=== PATIENT | female | born 1945 | race African-American/Black ===

== ENCOUNTER 2022-02-24 16:51 | Emergency (ER) | payer SELFPAY ==
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
--- NOTE | 2022-02-24 17:51 | NUR ---
CALLED PRINT PRESS OPERATOR #[phone] UNIT WILL BE DISPATCHED TO ER
--- NOTE | 2022-02-24 18:00 | NUR ---
Patient left without being seen by ER Physician.
== END 2022-02-24 18:10 | disposition home or self-care (01) ==
LOC: ER 16:54
DX: Z53.21 Procedure and treatment not carried out due to patient leaving prior to being seen by health care provider (principal)

== ENCOUNTER 2022-02-25 18:36 | Inpatient (IN) | payer MEDICARE, OTHER ==
[~2022-02-25] VITALS: Ht 170.2 cm; Wt 68.0 kg
--- NOTE | 2022-02-25 19:34 | NUR ---
PATIENT BIBRA 70 FOR MEDICAL CLEARANCE AND PLACEMENT. PATIENT IS A/O X 2, RR EVEN AND UNLABORED NO SOB NOTED. PATIENT VSS ARE STABLE. PATIENT TAKEN TO ER BED 14.SITTER IS AT BEDSIDE, WILL CONTINUE TO MONITOR.
--- NOTE | 2022-02-25 19:45 | NUR ---
COVID SWAB COLLECTED
--- NOTE | 2022-02-25 20:22 | NUR ---
HABITAT BIOLOGIST AT BEDSIDE
[2022-02-25 20:40] LABS: BASOPHILS % (AUTO) 0.4 % (0.0-2.0); EOSINOPHILS % (AUTO) 0.1 % (0.0-6.0); HEMATOCRIT 45 % (33-45); HEMOGLOBIN 14.8 g/dL (11.5-14.8); LYMPHOCYTES # (AUTO) 1.1 K/uL (0.8-4.8); LYMPHOCYTES % (AUTO) 12.1 % (20.0-44.0); MEAN CORPUSCULAR HGB CONC 33 g/dl (31.0-36.0); MEAN CORPUSCULAR VOLUME 91 fL (82-100); MONOCYTES # (AUTO) 0.4 K/uL (0.1-1.30); MONOCYTES % (AUTO) 4.8 % (2.0-12.0); NEUTROPHILS # (AUTO) 7.6 K/uL (1.8-8.9); NEUTROPHILS % (AUTO) 82.6 % (43.0-81.0); PLATELET COUNT (AUTO) 216 K/uL (150-450); WHITE BLOOD COUNT (AUTO) 9.2 K/uL (4.3-11.0)
[2022-02-25 20:52] LABS: BILIRUBIN,URINE NEGATIVE (NEGATIVE); COLOR,URINE YELLOW (YELLOW); LEUKOCYTE ESTERASE ,URINE NEGATIVE (NEGATIVE); NITRITE, URINE NEGATIVE (NEGATIVE); PROTEIN,URINE NEGATIVE (NEGATIVE); UGLUCOSE NEGATIVE (NEGATIVE); UROBILINOGEN,URINE 0.2 EU/dL (0.2)
[2022-02-25 21:28] LABS: ALBUMIN 3.9 g/dL (3.4-5.0); BILIRUBIN,TOTAL 0.8 mg/dL (0.2-1.0); CREATININE 1.2 mg/dL (0.6-1.3); POTASSIUM 3.6 mmol/L (3.5-5.1); TOTAL PROTEIN, SERUM 7.3 g/dL (6.4-8.2)
--- NOTE | 2022-02-26 00:02 | NUR ---
MATEO AT BEDSIDE FOR EVAL
[2022-02-26 00:03] LABS: ACETAMINOPHEN 0 ug/ml (10-30); ALCOHOL, BLOOD < 3 mg/dL (0-0)
--- NOTE | 2022-02-26 01:07 | NUR ---
REPORT GIVEN TO ISABEL FONTENOT
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
--- NOTE | 2022-02-26 01:32 | NUR ---
PATIENT TRANSFERRED TO GPS VSS.
[2022-02-26] MEDS ORDERED: NITR0.4T SL (01:45)
[2022-02-26] MEDS ORDERED: LORAZEPAM 0.5 MG TABLET PO PRN (02:00)
[2022-02-26] MEDS ORDERED: TEMAZEPAM 7.5 MG CAPSULE PO PRN (02:00)
[2022-02-26] MEDS ORDERED: BLOOD SUGAR DIAGNOSTIC 1 EACH STRIP IN ONE (02:00)
[2022-02-26 08:00] VITALS: BP 125/68
--- NOTE | 2022-02-26 09:15 | NUR ---
RN Notes: Received pt. asleep in bed, breathing is even and unlabored. Ate 100% for breakfast, is responding appropriately to staffs and pleasant upon approached. Pt. reoriented on the unit, encouraged to verbalize feelings and needs attended. Will continue to monitor for safety.
[2022-02-26] MEDS ORDERED: LOSA100T31 PO (13:06)
[2022-02-26] MEDS ORDERED: HYDR25TA4 PO (13:10)
[2022-02-26] MEDS ORDERED: ASPI-1169 PO (13:10)
[2022-02-26] MEDS ORDERED: METO50TA16 PO (13:10)
[2022-02-26] MEDS ORDERED: LOSA25TA27 PO ×2 (13:32→13:44)
--- NOTE | 2022-02-26 16:50 | NUR ---
Satya Sharma NP made aware to reconcile meds for the pt.
[2022-02-26] MEDS: DIVALPROEX SODIUM 125 MG CAP.SPRINK PO SCH (17:01)
[2022-02-26 17:55] VITALS: BP 103/65
--- NOTE | 2022-02-26 17:59 | NUR ---
Satya Sharma NP came in the unit and reconciled the meds.
[2022-02-26] MEDS ORDERED: NITROGLYCERIN 0.4 MG/TAB BOTTLE SL PRN (18:00)
[2022-02-26] MEDS: MAGNESIUM HYDROXIDE 30 ML UDC PO PRN (19:27)
--- NOTE | 2022-02-26 19:27 | NUR ---
GPS RN NOTE, PATIENT HAS A COMPLAINT OF FEELING CONSTIPATED AND IS REQUESTING MILK OF MAGNESIA. PATIENT VITAL SIGNS ARE STABLE. GAVE MILK OF MAGNESIA 30 ML 1 UNIT DOSE PO Q12HR PRN ORDERED. WILL REASSESS FOR CONSTIPATION AND I WILL CONTINUE TO MONITOR THIS PATIENT WITH THE HELP OF STAFF.
--- NOTE | 2022-02-26 19:30 | NUR ---
GPS RN NOTE, RECEIVED PATIENT AWAKE AND IN BED, NO S/S OR COMPLAINTS OF PAIN AT THIS TIME. PATIENT IS DISPLAYING NO S/S OF APPARENT DISTRESS AT THIS TIME. PATIENT BREATHING IS UNLABORED WITH EQUAL RISE AND FALL OF THE CHEST. PATIENT IS ALERT AND ORIENTED X 2 ON ROOM AIR WITH A SPO2 95%. PATIENT IS COMPLIANT WITH MEDICATIONS, CALM, FORGETFUL, AND COOPERATIVE. PATIENT DENIES SUICIDAL AND HOMICIDAL IDEATIONS AT THIS TIME. PATIENT ASSISTED WITH TURNING AND REPOSITIONING Q2HR AND PRN FOR COMFORT AND CIRCULATION. PATIENT HAS NO NEEDS AT THIS TIME. PATIENT EDUCATED ON THE USE OF THE CALL [place]. PATIENT BED SIDE RAILS UP X 2 FOR SAFETY. PATIENT BED IS LOCKED, LOW, WITH BED ALARM ON. WILL CONTINUE TO MONITOR THIS PATIENT Q15 MINUTES WITH THE HELP OF STAFF TO MAINTAIN SAFETY.
[2022-02-26 20:00] VITALS: BP 111/48
[2022-02-26] MEDS: risperiDONE 0.25 MG TABLET PO SCH (21:32)
[2022-02-27 07:08] LABS: BASOPHILS # (AUTO) 0.1 K/uL (0.0-0.2); BASOPHILS % (AUTO) 1.9 % (0.0-2.0); EOSINOPHILS % (AUTO) 1.4 % (0.0-6.0); HEMATOCRIT 43 % (33-45); HEMOGLOBIN 13.9 g/dL (11.5-14.8); LYMPHOCYTES # (AUTO) 3.1 K/uL (0.8-4.8); LYMPHOCYTES % (AUTO) 50.2 % (20.0-44.0); MEAN CORPUSCULAR HGB CONC 33 g/dl (31.0-36.0); MEAN CORPUSCULAR VOLUME 91 fL (82-100); MONOCYTES # (AUTO) 0.6 K/uL (0.1-1.30); MONOCYTES % (AUTO) 9.2 % (2.0-12.0); NEUTROPHILS # (AUTO) 2.3 K/uL (1.8-8.9); NEUTROPHILS % (AUTO) 37.3 % (43.0-81.0); PLATELET COUNT (AUTO) 229 K/uL (150-450); WHITE BLOOD COUNT (AUTO) 6.3 K/uL (4.3-11.0)
[2022-02-27 07:27] LABS: ALBUMIN 3.4 g/dL (3.4-5.0); BILIRUBIN,TOTAL 0.5 mg/dL (0.2-1.0); CALCIUM, SERUM 9.5 mg/dL (8.5-10.1); CREATININE 0.8 mg/dL (0.6-1.3); POTASSIUM 3.8 mmol/L (3.5-5.1); TOTAL PROTEIN, SERUM 6.8 g/dL (6.4-8.2)
[2022-02-27 08:00] VITALS: BP 108/78
[2022-02-27] MEDS: ASPIRIN 81 MG TAB.CHEW PO SCH (08:47)
[2022-02-27] MEDS: DIVALPROEX SODIUM 125 MG CAP.SPRINK PO SCH ×3 (08:48→17:29)
[2022-02-27] MEDS: risperiDONE 0.25 MG TABLET PO SCH ×2 (08:48→20:17)
[2022-02-27] MEDS: HYDROCHLOROTHIAZIDE 25 MG TABLET PO SCH (08:48)
[2022-02-27] MEDS: METOPROLOL TARTRATE 50 MG TABLET PO SCH ×2 (08:53→17:28)
[2022-02-27] MEDS: LOSARTAN POTASSIUM 50 MG TABLET PO SCH (08:54)
--- NOTE | 2022-02-27 12:00 | NUR ---
NURSE NOTE: CALLED RADIOLOGY TO INQUIRE TO CT SCHEDULED TIME. PER TECH CT MAY NOT BE UNTIL TOMORROW DUE TO EMERGENT CASES.
[2022-02-27 16:00] VITALS: BP 119/87
--- NOTE | 2022-02-27 20:00 | NUR ---
RN NOTE PATIENT REFUSED SKIN BODY ASSESSMENT.
[2022-02-27 20:31] VITALS: BP 101/63
[2022-02-28 08:00] VITALS: BP 125/79
[2022-02-28] MEDS: risperiDONE 0.25 MG TABLET PO SCH ×2 (08:18→20:34)
[2022-02-28] MEDS: DIVALPROEX SODIUM 125 MG CAP.SPRINK PO SCH ×3 (08:18→16:50)
[2022-02-28] MEDS: ASPIRIN 81 MG TAB.CHEW PO SCH (08:19)
[2022-02-28] MEDS: HYDROCHLOROTHIAZIDE 25 MG TABLET PO SCH (08:19)
[2022-02-28] MEDS: LOSARTAN POTASSIUM 50 MG TABLET PO SCH (08:19)
[2022-02-28] MEDS: METOPROLOL TARTRATE 50 MG TABLET PO SCH ×2 (08:20→16:50)
--- NOTE | 2022-02-28 12:53 | NUR ---
Treatment Plan: Pt refused to sign treatment plan and was suspicious.
--- NOTE | 2022-02-28 12:53 | NUR ---
RAMANA Initial Discharge Note: Patient reports that she lives in [place] located at [address]. Pt will possibly need placement. RAMANA will contact pt's son Zaheer ([phone]) to discuss treatment/discharge plan. RAMANA will work with the MD, family, and treatment team.
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
--- NOTE | 2022-02-28 13:42 | NUR ---
RAMANA Family Contact: SW attempted to contact pt's son Zaheer ([phone]) and it went straight to voicemail. SW left a detailed voicemail of his mother's admission. SW requesting a call back to discuss discharge/treatment plan.
--- NOTE | 2022-02-28 14:31 | NUR ---
RAMANA Family Contact: RAMANA spoke with pt's son Zaheer ([phone]) and discussed treatment/discharge plan. He stated that he spoke with Dr. Arthur and the doctor recommended a nursing facility. RAMANA will send out clinicals when pt is stable.
[2022-02-28 16:00] VITALS: BP 122/70
--- NOTE | 2022-02-28 18:20 | NUR ---
RN-CO: DR KIMBROUGH MADE AWARE OF THE NEURO CONSULT. PER MD HE WILL COME IN AM.
[2022-02-28 19:43] VITALS: BP 129/75
[2022-03-01 08:00] VITALS: BP 128/62
[2022-03-01] MEDS: DIVALPROEX SODIUM 125 MG CAP.SPRINK PO SCH ×3 (08:04→16:36)
[2022-03-01] MEDS: risperiDONE 0.25 MG TABLET PO SCH ×2 (08:04→20:22)
[2022-03-01] MEDS: ASPIRIN 81 MG TAB.CHEW PO SCH (08:04)
[2022-03-01] MEDS: HYDROCHLOROTHIAZIDE 25 MG TABLET PO SCH (08:05)
[2022-03-01] MEDS: METOPROLOL TARTRATE 50 MG TABLET PO SCH ×2 (08:06→16:35)
[2022-03-01] MEDS: LOSARTAN POTASSIUM 50 MG TABLET PO SCH (08:06)
--- NOTE | 2022-03-01 08:30 | NUR ---
LEI JACKSON RN NOTES: RECEIVED PT IN BED AWAKE, ALERT AND ORIENTED X 2-3. NO SOB OR CARDIAC DISTRESS NOTED, DENIES PAIN AT THIS TIME, NO EPISODES OF BEHAVIORAL CHANGES. RESIDENT IS AMBULATORY AND STABLE. PT ABLE TO TAKE MORNING MEDS. WILL MONITOR ACCORDINGLY. SAFETY MEASURES MAINTAINED:BED LOCKED AND IN LOWEST POSITION, SIDE RAILS UP X 2. CALL LIGHT IN EASY REACH.
--- NOTE | 2022-03-01 10:57 | NUR ---
SNF Referral: SW sent clinicals to [facility] ([phone]) to Bijal Betancur for placement. SW sent H & P, progress notes, and medication list.
--- NOTE | 2022-03-01 12:11 | NUR ---
SNF Contact: SW received a call from [facility] ([phone]) to Bijal Betancur for placement who stated they cannot accept pt due to not having availability.
--- NOTE | 2022-03-01 12:17 | NUR ---
SNF Referral: SW sent clinicals to [facility] ([phone]) to Tesha caba for placement. SW sent H & P, progress notes, and medication list.
--- NOTE | 2022-03-01 13:38 | NUR ---
SNF Contact: SW received a call from [facility] ([phone]) to Tesha who stated that pt is accepted.
[2022-03-01 16:00] VITALS: BP 154/88
[2022-03-01 17:21] LABS: THYROID STIMULATING HORMONE 1.021 uIU/mL (0.358-3.74)
[2022-03-01] MEDS: ACETAMINOPHEN 325 MG TABLET PO PRN (20:22)
[2022-03-02 08:00] VITALS: BP 145/55
[2022-03-02] MEDS: DIVALPROEX SODIUM 125 MG CAP.SPRINK PO SCH ×3 (08:54→16:58)
[2022-03-02] MEDS: ASPIRIN 81 MG TAB.CHEW PO SCH (08:54)
[2022-03-02] MEDS: risperiDONE 0.25 MG TABLET PO SCH ×2 (08:54→21:19)
[2022-03-02] MEDS: HYDROCHLOROTHIAZIDE 25 MG TABLET PO SCH (08:55)
[2022-03-02] MEDS: LOSARTAN POTASSIUM 50 MG TABLET PO SCH (08:56)
[2022-03-02] MEDS: METOPROLOL TARTRATE 50 MG TABLET PO SCH ×2 (08:56→16:58)
[2022-03-02] MEDS: ACETAMINOPHEN 325 MG TABLET PO PRN (08:56)
--- NOTE | 2022-03-02 09:49 | NUR ---
Court Hearing: Patient's court hearing for 1400 was today and it was upheld for GD.
--- NOTE | 2022-03-02 09:49 | NUR ---
Court Notification: Pt's court hearing for 5250 is today and SW notified pt's son Zaheer ([phone]) to notify of the hearing.
[2022-03-02] MEDS: MAG HYDROX/AL HYDROX/SIMETH 30 ML UDC PO PRN (12:31)
[2022-03-02 16:00] VITALS: BP 124/70
[2022-03-02 20:12] VITALS: BP 142/76
[2022-03-03 08:00] VITALS: BP 127/72
[2022-03-03] MEDS: risperiDONE 0.25 MG TABLET PO SCH ×2 (08:19→21:17)
[2022-03-03] MEDS: ASPIRIN 81 MG TAB.CHEW PO SCH (08:19)
[2022-03-03] MEDS: DIVALPROEX SODIUM 125 MG CAP.SPRINK PO SCH ×3 (08:19→17:17)
[2022-03-03] MEDS: HYDROCHLOROTHIAZIDE 25 MG TABLET PO SCH (08:20)
[2022-03-03] MEDS: LOSARTAN POTASSIUM 50 MG TABLET PO SCH (08:20)
[2022-03-03] MEDS: METOPROLOL TARTRATE 50 MG TABLET PO SCH ×2 (08:21→17:17)
--- NOTE | 2022-03-03 11:28 | NUR ---
RAMANA Family Contact: RAMANA contacted pt's son Zaheer ([phone]) and notified that pt is accepted at [facility] and he was agreeable of this.
[2022-03-03 16:00] VITALS: BP 157/87
--- NOTE | 2022-03-03 18:22 | NUR ---
RN-NOTES PATIENT VISIBLE IN THE UNIT,A/OX3,GUARDED,CALM NO ACUTE DISTRESS NOTED. COMPLIANT WITH MEDICATIONS. AMBULATORY STEADY GAIT.ABLE TO MAKE NEEDS KNOWN TO THE STAFF. ALL NEEDS ATTENDED AND ANTICIPATED. WILL CONT. MONITORING FOR SAFETY AND BEHAVIOR.WILL ENDORSE TO INCOMING NURSE FOR THE CONTINUITY OF CARE.
[2022-03-03 20:52] VITALS: BP 157/72
--- NOTE | 2022-03-03 21:00 | NUR ---
RN NOTES:PATIENT WATCHING TV IN ACTIVITY ROOM. NO S/SX OF ACUTE DISTRESS NOTED. PATIENT IS CALM, COOPERATIVE TO CARE, FORGETFUL, LABILE, GUARDED, MED COMPLIANT ,DISORGNIZED, NEEDS FREQUENTLY REDIRECTIONS DENIES SI/HI/AVH AT THIS TIME. SAFETY PRECAUTIONS MAINTAINED. WILL CONTINUE TO MONITOR Q15MIN ROUNDS FOR SAFETY AND BEHAVIOR.
[2022-03-03] MEDS: ATORVASTATIN 10 MG TABLET PO SCH (21:17)
[2022-03-03 22:30] VITALS: BP 134/72
[2022-03-04 06:47] LABS: BASOPHILS % (AUTO) 0.7 % (0.0-2.0); EOSINOPHILS % (AUTO) 5.2 % (0.0-6.0); HEMATOCRIT 41 % (33-45); HEMOGLOBIN 13.4 g/dL (11.5-14.8); LYMPHOCYTES # (AUTO) 3.1 K/uL (0.8-4.8); LYMPHOCYTES % (AUTO) 59.8 % (20.0-44.0); MEAN CORPUSCULAR HGB CONC 33 g/dl (31.0-36.0); MEAN CORPUSCULAR VOLUME 90 fL (82-100); MONOCYTES # (AUTO) 0.4 K/uL (0.1-1.30); MONOCYTES % (AUTO) 8.6 % (2.0-12.0); NEUTROPHILS # (AUTO) 1.3 K/uL (1.8-8.9); NEUTROPHILS % (AUTO) 25.7 % (43.0-81.0); PLATELET COUNT (AUTO) 216 K/uL (150-450); WHITE BLOOD COUNT (AUTO) 5.2 K/uL (4.3-11.0)
[2022-03-04 07:02] LABS: VALPROIC ACID 58 ug/mL (50-100)
[2022-03-04 07:35] LABS: ALANINE AMINOTRANSFERASE 11 U/L (12-78); ALKALINE PHOSPHATASE 55 U/L (46-116); ASPARTATE AMINOTRANSFERASE 12 U/L (15-37); BILIRUBIN,TOTAL 0.2 mg/dL (0.2-1.0); CALCIUM, SERUM 9.4 mg/dL (8.5-10.1); CARBON DIOXIDE 31 mmol/L (21-32); CHLORIDE 103 mmol/L (98-107); GLUCOSE 90 mg/dL (74-106); POTASSIUM 3.8 mmol/L (3.5-5.1); SODIUM SERUM 140 mmol/L (136-145); TOTAL PROTEIN, SERUM 6.2 g/dL (6.4-8.2); UREA NITROGEN, BLOOD 17 mg/dL (7-18)
[2022-03-04 07:49] LABS: CREATININE 0.8 mg/dL (0.6-1.3)
[2022-03-04 08:00] VITALS: BP 147/84
[2022-03-04] MEDS: DIVALPROEX SODIUM 125 MG CAP.SPRINK PO SCH ×3 (08:14→17:12)
[2022-03-04] MEDS: ASPIRIN 81 MG TAB.CHEW PO SCH (08:14)
[2022-03-04] MEDS: risperiDONE 0.25 MG TABLET PO SCH ×2 (08:14→20:10)
[2022-03-04] MEDS: METOPROLOL TARTRATE 50 MG TABLET PO SCH ×2 (08:15→17:13)
[2022-03-04] MEDS: HYDROCHLOROTHIAZIDE 25 MG TABLET PO SCH (08:15)
[2022-03-04] MEDS: LOSARTAN POTASSIUM 50 MG TABLET PO SCH (08:15)
[2022-03-04 16:00] VITALS: BP_SYST 120; BP_SYST 143; BP_DIAS 76; BP_DIAS 79
--- NOTE | 2022-03-04 18:58 | NUR ---
RN-NOTES PATIENT VISIBLE IN THE UNIT,A/OX3,ATTENDED GROUPS,CALM ,COOPERATIVE WITH THE STAFF,NO ACUTE DISTRESS NOTED. COMPLIANT WITH MEDICATIONS. AMBULATORY STEADY GAIT.ABLE TO MAKE NEEDS KNOWN TO THE STAFF. ALL NEEDS ATTENDED AND ANTICIPATED. WILL CONT. MONITORING FOR SAFETY AND BEHAVIOR.WILL ENDORSE TO INCOMING NURSE FOR THE CONTINUITY OF CARE.
[2022-03-04 20:00] VITALS: BP 149/79
--- NOTE | 2022-03-04 20:05 | NUR ---
RN NOTES:PATIENT RESTING IN HER ROOM. NO S/SX OF ACUTE DISTRESS NOTED. PATIENT IS CALM, COOPERATIVE TO CARE AT THIS TIME, BUT EASILY AGITATED, FORGETFUL, LABILE, GUARDED, MED COMPLIANT ,DISORGNIZED, NEEDS FREQUENTLY REDIRECTIONS DENIES SI/HI/AVH AT THIS TIME. SAFETY PRECAUTIONS MAINTAINED. WILL CONTINUE TO MONITOR Q15MIN ROUNDS FOR SAFETY AND BEHAVIOR.
[2022-03-04] MEDS: ATORVASTATIN 10 MG TABLET PO SCH (21:13)
[2022-03-05 08:00] VITALS: BP 132/79
[2022-03-05] MEDS: risperiDONE 0.25 MG TABLET PO SCH ×2 (08:10→20:50)
[2022-03-05] MEDS: METOPROLOL TARTRATE 50 MG TABLET PO SCH ×2 (08:11→16:22)
[2022-03-05] MEDS: LOSARTAN POTASSIUM 50 MG TABLET PO SCH (08:12)
[2022-03-05] MEDS: HYDROCHLOROTHIAZIDE 25 MG TABLET PO SCH (08:12)
[2022-03-05] MEDS: ASPIRIN 81 MG TAB.CHEW PO SCH (08:14)
[2022-03-05] MEDS: DIVALPROEX SODIUM 125 MG CAP.SPRINK PO SCH ×3 (08:14→16:21)
[2022-03-05] MEDS: MAGNESIUM HYDROXIDE 30 ML UDC PO PRN (08:39)
--- NOTE | 2022-03-05 08:57 | NUR ---
RN NOTES PT VERBALIZED THAT SHE'S CONSTIPATED. PRN MOM 30ML PO GIVEN AT 0839. WILL CONTINUE TO MONITOR
[2022-03-05 16:06] VITALS: BP 147/74
[2022-03-05 20:00] VITALS: BP 142/78
[2022-03-05] MEDS: ATORVASTATIN 10 MG TABLET PO SCH (21:03)
--- NOTE | 2022-03-06 07:00 | NUR ---
GPS RN OPENING NOTES PATIENT LAYING IN BED, A/O X 3, NO COMPLAINTS OF PAIN OR DISCOMFORT AT THIS TIME. DENIES SI/HI/AVH. SAFETY PRECAUTIONS MAINTAINED. WILL CONTINUE TO MONITOR Q15MIN ROUNDS FOR SAFETY AND BEHAVIOR.
[2022-03-06 08:00] VITALS: BP 138/91
[2022-03-06] MEDS: DIVALPROEX SODIUM 125 MG CAP.SPRINK PO SCH ×4 (08:02→16:48)
[2022-03-06] MEDS: LOSARTAN POTASSIUM 50 MG TABLET PO SCH (08:30)
[2022-03-06] MEDS: HYDROCHLOROTHIAZIDE 25 MG TABLET PO SCH (08:30)
[2022-03-06] MEDS: ASPIRIN 81 MG TAB.CHEW PO SCH (08:30)
[2022-03-06] MEDS: risperiDONE 0.25 MG TABLET PO SCH ×2 (08:30→22:18)
[2022-03-06] MEDS: METOPROLOL TARTRATE 50 MG TABLET PO SCH ×2 (08:30→16:38)
[2022-03-06] MEDS: MAGNESIUM HYDROXIDE 30 ML UDC PO PRN (08:31)
[2022-03-06] MEDS ORDERED: MAGNESIUM CITRATE 296 ML BOTTLE PO ONE (12:00)
[2022-03-06] MEDS ORDERED: LACTULOSE 10 G/15 ML UDC (PYXIS) PO PRN (13:00)
--- NOTE | 2022-03-06 13:30 | NUR ---
MAGNESIUM CITRATE NOT ADMINISTERED FOR CONSTIPATION DUE TO MED NOT AVAILABLE
[2022-03-06 16:00] VITALS: BP 131/69
[2022-03-06] MEDS: MAG HYDROX/AL HYDROX/SIMETH 30 ML UDC PO PRN (18:17)
[2022-03-06 20:19] VITALS: BP 104/62
[2022-03-06] MEDS: ATORVASTATIN 10 MG TABLET PO SCH (22:17)
[2022-03-07 08:00] VITALS: BP 125/63
[2022-03-07] MEDS: ASPIRIN 81 MG TAB.CHEW PO SCH (09:00)
[2022-03-07] MEDS: DIVALPROEX SODIUM 125 MG CAP.SPRINK PO SCH ×3 (09:00→16:49)
[2022-03-07] MEDS: METOPROLOL TARTRATE 50 MG TABLET PO SCH ×2 (09:01→16:50)
[2022-03-07] MEDS: risperiDONE 0.25 MG TABLET PO SCH ×2 (09:01→21:44)
[2022-03-07] MEDS: HYDROCHLOROTHIAZIDE 25 MG TABLET PO SCH (09:01)
[2022-03-07] MEDS: LOSARTAN POTASSIUM 50 MG TABLET PO SCH (09:09)
[2022-03-07 16:00] VITALS: BP 115/63
--- NOTE | 2022-03-07 18:46 | NUR ---
RN CLOSING NOTES PATIENT IS A/O X3 , ABLE TO MAKE NEED KNOWN , ALL DUE MEDS ORDERED GIVEN , NO BEHAVIOR NOTED AND PATIENT COMPLIANT WITH CARE AND NO CHANGES NOTED AT THIS TIME , ALL NEEDS ATTENDED
[2022-03-07 20:00] VITALS: BP 117/54
[2022-03-07] MEDS: ATORVASTATIN 10 MG TABLET PO SCH (21:44)
[2022-03-08 08:00] VITALS: BP 141/83
[2022-03-08] MEDS: ASPIRIN 81 MG TAB.CHEW PO SCH (08:47)
[2022-03-08] MEDS: METOPROLOL TARTRATE 50 MG TABLET PO SCH ×2 (08:47→16:14)
[2022-03-08] MEDS: DIVALPROEX SODIUM 125 MG CAP.SPRINK PO SCH ×3 (08:48→16:14)
[2022-03-08] MEDS: LOSARTAN POTASSIUM 50 MG TABLET PO SCH (08:48)
[2022-03-08] MEDS: risperiDONE 0.25 MG TABLET PO SCH ×2 (08:48→21:21)
[2022-03-08] MEDS: HYDROCHLOROTHIAZIDE 25 MG TABLET PO SCH (08:49)
[2022-03-08 16:00] VITALS: BP 133/63
[2022-03-08] MEDS: MAGNESIUM HYDROXIDE 30 ML UDC PO PRN (18:08)
[2022-03-08 20:00] VITALS: BP 139/75
[2022-03-08] MEDS: ATORVASTATIN 10 MG TABLET PO SCH (21:22)
[2022-03-09 08:00] VITALS: BP 117/60
[2022-03-09] MEDS: ASPIRIN 81 MG TAB.CHEW PO SCH (08:17)
[2022-03-09] MEDS: risperiDONE 0.25 MG TABLET PO SCH ×2 (08:17→21:33)
[2022-03-09] MEDS: HYDROCHLOROTHIAZIDE 25 MG TABLET PO SCH (08:18)
[2022-03-09] MEDS: DIVALPROEX SODIUM 125 MG CAP.SPRINK PO SCH ×3 (08:18→17:16)
[2022-03-09] MEDS: LOSARTAN POTASSIUM 50 MG TABLET PO SCH (08:18)
[2022-03-09] MEDS: METOPROLOL TARTRATE 50 MG TABLET PO SCH ×2 (08:19→17:15)
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
[2022-03-09 16:00] VITALS: BP 135/69
--- NOTE | 2022-03-09 19:45 | NUR ---
RN OPENING NOTES: RECEIVED PATIENT AWAKE, AMBULATORY TO THE BREAK ROOM,, VERBALLY RESPONSIVE, APPEARS CALM NO COMPLAIN OF PAIN AND DISCOMFORT AT THIS TIME ,ON ROOM AIR SATURATING WELL, REMIND PATIENT TO CALL IN CASE NEEDED AN ASSISTANCE, KEPT CLEAN AND DRY ALL NEEDS MET, CONTINUE TO MONITOR.
[2022-03-09 20:00] VITALS: BP 140/59
[2022-03-09 20:18] VITALS: BP 140/59
--- NOTE | 2022-03-09 20:24 | NUR ---
RN NOTES: COVID 19 SPECIMEN TAKEN ON BILATERAL NARES, PATIENT IS VERY RESPONSIVE AND COOPERATIVE EXPLAINED PURPOSE, PATIENT UNDERSTAND, NO RESISTANCE OR ANY BEHAVIORAL CHANGES DURING SPECIMEN TAKEN. WILL CONTINUE TO MONITOR.
[2022-03-09] MEDS: ATORVASTATIN 10 MG TABLET PO SCH (21:33)
[2022-03-10 08:00] VITALS: BP 143/89
--- NOTE | 2022-03-10 08:10 | NUR ---
SW Discharge: Patient will be discharged to fpc facility [facility], [place] [address]; ). Please arrange transportation at 1PM. Nurse Technician spoke with Kinjal remote ruby on rails developer at [facility]; ([phone]), who stated patient will be accepted today. Patients melanie Schwab ([phone]) is aware and agreeable. Patient is alert and oriented x3 and is unable to plan for self-care. Patient denies any suicidal or homicidal ideations. Patient is aware and agreeable with discharge plans. Patient will continue to follow-up with (psychiatrist) Dr. Arthur [address], [place] [address]; ([phone]) and (civil division commander deputy sheriff) Dr. Berry [address], [place] [address]; ([phone]). Patient presents with euthymic and congruent mood.
[2022-03-10] MEDS: risperiDONE 0.25 MG TABLET PO SCH (08:26)
[2022-03-10] MEDS: ASPIRIN 81 MG TAB.CHEW PO SCH (08:26)
[2022-03-10] MEDS: LOSARTAN POTASSIUM 50 MG TABLET PO SCH (08:27)
[2022-03-10] MEDS: HYDROCHLOROTHIAZIDE 25 MG TABLET PO SCH (08:27)
[2022-03-10] MEDS: DIVALPROEX SODIUM 125 MG CAP.SPRINK PO SCH ×2 (08:27→13:01)
[2022-03-10 08:28] VITALS: BP 143/89
[2022-03-10] MEDS: METOPROLOL TARTRATE 50 MG TABLET PO SCH (08:28)
--- NOTE | 2022-03-10 08:46 | NUR ---
APS: RAMANA received a call from APS therapeutic case manager Declan ([phone]) who stated that they will assess the pt.
--- NOTE | 2022-03-10 10:18 | NUR ---
Dr. Arthur gave an order to D/C hold and D/C to [facility], to continue same meds including prn and to follow up with psych and medical doctors.
--- NOTE | 2022-03-10 14:16 | NUR ---
RN-NOTES PATIENT HAD A DISCHARGE FROM DR. BHATT ( PSYCHIATRIST) ELENA TUBBS MEDICALLY CLEARED PATIENT FOR DISCHARGE. REPORT WAS GIVEN TO JAYLAN ( FACILITY MILK ROUTE DELIVERER STAFF). PATIENT LEFT THE UNIT A/OX3 AMBULATORY STEADY GAIT. PATIENT DID NOT VERBALIZE SI/HI,DENIES VISUAL /AUDITORY HALLUCINATIONS AT THE TIME OF DISCHARGE.PATIENT CLAIMED THAT SHE CAME WITH THE COAT BUT THE COAT WAS UNABLE TO LOCATE. CALL PT'S. SON JOSE ZAPATA AND LEFT MS TO VERIFY IF HE TOOK HOME ANY COAT.STILL AWAITING FOR CALL BACK.OTHER BELONGINGS WAS GIVEN BACK TO THE PATIENT INCLUDING OWN MEDICATION. PATIENT LEFT THE UNIT IN STABLE CONDITION. MUSKRAT TRAPPER BY AMBULANCE VIA Energy Automation SystemNEY WITH TWO STAFF ASSIST.
== END 2022-03-10 14:15 | DRG 885 ==
LOC: ER 18:57 → GPS 02-26 01:00
PROVIDERS: ADMIT Psychiatry & Neurology Psychosomatic Medicine; ATTEND Nurse Practitioner Acute Care
DX: F31.9 Bipolar disorder, unspecified (principal); F03.93 Unspecified dementia, unspecified severity, with mood disturbance; F29 Unspecified psychosis not due to a substance or known physiological condition; E86.0 Dehydration; I10 Essential (primary) hypertension; Z79.899 Other long term (current) drug therapy; Z79.82 Long term (current) use of aspirin; Z73.6 Limitation of activities due to disability; R79.89 Other specified abnormal findings of blood chemistry; R53.1 Weakness; R26.9 Unspecified abnormalities of gait and mobility
CPT/HCPCS: 36415; 70450-TC; 80053-TC; 80061-TC; 80164-TC; 82607-TC; 82962-TC; 84439-TC; 84443-TC; 85025-TC; 87081-TC; C9803; G0480